=== PATIENT | female | born 2000 | race Hispanic/Latino ===

== ENCOUNTER 2024-10-01 23:45 | Emergency (ER) | payer SELFPAY ==
[~2024-10-01] VITALS: Ht 170.2 cm; Wt 83.9 kg
[2024-10-02] MEDS: ONDANSETRON HCL 4 MG ORAL DISINTEGRATING TAB PO ONE (00:22)
[2024-10-02] MEDS ORDERED: ONDANSETRON ODT4 MG PO (00:32)
[2024-10-02] MEDS ORDERED: FAMOTIDINE20 MG PO (00:32)
[2024-10-02] MEDS ORDERED: MAALOX MAXIMUM355 ML PO (00:32)
[2024-10-02 00:43] VITALS: PULSE 101; RESP 16; TEMP 101.5
[2024-10-02] MEDS: ACETAMINOPHEN 325 MG TAB PO ONE (00:47)
[2024-10-02 00:48] VITALS: BP 102/63; PULSE 101; RESP 16; TEMP 101.5; O2SAT 98
== END 2024-10-02 00:55 | disposition home or self-care (01) ==
LOC: FSED 23:49
DX: R11.2 Nausea with vomiting, unspecified (principal); K52.9 Noninfective gastroenteritis and colitis, unspecified; R42 Dizziness and giddiness; R53.83 Other fatigue; Z11.52 Encounter for screening for COVID-19
CPT/HCPCS: 0223U; 87400; 99283; Q0162